=== PATIENT | female | born 1940 | race Caucasian/White ===

== ENCOUNTER 2018-01-31 06:57 | Outpatient (CLI) | payer MEDICARE, BC ==
[~2018-01-31] VITALS: Ht 160 cm; Wt 76.8 kg
--- NOTE | ~2018-01-31 | HEMODYNAMI ---
PATIENT:SHAUNA HAY V MEDICAL RECORD: [id number] : 40 LOCATION:D.CAT ADMISSION DATE: 01/31/18 Generatedon:01/31/20188:58 Patient name: SHAUNA HAY Patient #: [id number] SSN: D OB: 1940 Date of study: 01/31/2018 Page: Of Hemodynamic Procedure Report Patient Data Patient Demographics Procedure consent was obtained First Name: SHAUNA Gender: Female Last Name: BHARTI : 1940 [facility] Initial: V Age: 77 year(s) Patient #: [id number] Race: Unknown Additional ID: [id number] Contact details Address: [place] [address] State: [place] City: [facility] Zip code: [address] Admission Admission Data Admission Date: 01/31/2018 Admission Time: 6:57 Admit Source: Other Procedure Procedure Types Cath Procedure Diagnostic Procedure LHC LHC w/Coronaries Procedure Description Procedure Date Procedure Date: 01/31/2018 Procedure Start Time: 8:43 Procedure End Time: 8:57 Procedure Staff Name Function Lang Javier MD Performing Physician Sharan Gupta RT Monitor Daniel Lizama RT Scrub Romel Sparks RN Nurse Jordi Mckeon RT Information Clerk [employer] Procedure Data Cath Procedure Fluoroscopy Diagnostic fluoroscopy Total fluoroscopy Time: 3.5 time: 3.5 min min Diagnostic fluoroscopy Total fluoroscopy dose: 64 dose: 64 mGy mGy Contrast Material Contrast Material Type Amount (ml) Isovue 300 33 Entry Location Entry Primary Successful Side Size Upsize Upsize Entry Closure Giang ccessful Closure Location (Fr) 1 (Fr) 2 (Fr) Remarks Device Remarks Radial Right 6 Fr Mechanical artery Short Compression Estimated blood loss: 10 ml Diagnostic catheters Device Type Used For End Catheter Placement DIAGNOSTIC [place] 110cm 5 Procedure Fr catheter ([id number]) Procedure Complications No complications Procedure Medications Medication Administration Route Dosage Oxygen etCO2 Nasal cannula 2 l/min Heparin Flush Bag added to field 2 bags (1000units/500ml NS) 0.9% NaCl I.V. 100 ml/hr Radial Cocktail added to field 1 syringe (Verapomil 2mg/Nitro 400mcg/Heparin 1500units) Fentanyl I.V. 50 mcg Versed I.V. 1 mg Fentanyl I.V. 25 mcg Versed I.V. 0.5 mg Radial Cocktail I.A. 1 syringe (Verapomil 2mg/Nitro 400mcg/Heparin 1500units) Hemodynamics Rest Heart Rate: 57 (bpm) Pressure Samples Time Site Value (mmHg) Purpose Heart Use Rate(bpm) 8:52 LV 125/3,17 EDP 63 8:53 AO 200/61(67) Snapshot 64 8:53 AO 113/67(87) Snapshot 65 Gradients Valve Time Site Site Mean SEP/DFP Peak To Heart Use 1 2 (mmHg) (sec/min) Peak Rate (mmHg) (bpm) Aortic 8:53 LV AO 62 Snapshots Pre Cath Intra NCS Post Cath Vital Signs Time Heart Resp SPO2 etCO2 NIBP (mmHg) Rhythm Pain Sedation Rate (ipm) (%) (mmHg) Status Level (bpm) 8:27:09 61 17 99 0 158/78(122) NSR 0 (11) 10(A) , No pain 8:32:33 55 16 100 28.5 152/78(106) NSR 0 (11) 10(A) , No pain 8:36:53 56 16 98 30.1 129/70(102) NSR 0 (11) 10(A) , No pain 8:42:10 54 16 96 27.8 133/73(100) NSR 0 (11) 9(A) , No pain 8:46:31 55 16 97 27 127/68(105) NSR 0 (11) 9(A) , No pain 8:50:49 67 17 94 27 107/59(84) NSR 0 (11) 9(A) , No pain 8:55:03 64 17 97 30 122/67(84) NSR 0 (11) 9(A) , No pain Medications Time Medication Route Dose Verified Delivered Reason Notes Effectiveness by by 8:29:17 Oxygen etCO2 2 l/min Lang Urena Per Nasal Concepcion Sparks RN physician cannula 8:29:26 Heparin Flush added 2 bags Lang Urena used for Bag to Concepcion Sparks carrier washer (1000units/500ml field NS) 8:29:35 0.9% NaCl I.V. 100 Lang Romel Per ml/hr Concepcion Sparks RN physician MD 8:29:43 Radial Cocktail added 1 Lang Romel used for (Verapomil to syringe Concepcion Sparks RN procedure 2mg/Nitro field LEO 400mcg/Heparin 1500units) 8:39:16 Fentanyl I.V. 50 mcg Lang Romel for sedation Concepcion Sparks RN, MD 8:39:22 Versed I.V. 1 mg Lang Romel for sedation Concepcion Sparks RN, MD 8:41:04 Fentanyl I.V. 25 mcg Lang Romel for sedation Concepcion Sparks RN, MD 8:41:09 Versed I.V. 0.5 mg Lang Romel for sedation Concepcion Sparks RN, MD 8:46:14 Radial Cocktail I.A. 1 Lagn Lang for (Verapomil syringe Concepcion Javier MD vasodilation 2mg/Nitro MD 400mcg/Heparin 1500units) Procedure Log Time Note 8:00:43 Jordi Mckeon RT(R) sent for patient. Start room use. 8:17:42 Informed consent obtained and on chart 8:17:45 Admit Source: Other 8:18:10 Diagnostic Cath status Elective 8:19:00 Time tracking: Regular hours (M-F 7:00 - 5:00) 8:19:04 Plan of Care:Hemodynamics will remain stable., Cardiac rhythm will remain stable., Comfort level will be maintained., Respiratory function will remain adequate., Patient/ family verbilizes understanding of procedure., Procedure tolerated without complication., Recovers from procedure without complications.. 8:19:14 Patient received from Pre/Post Procedure Room to CCL 3 Alert and oriented. Tansferred to table in Supine position. 8:19:15 Warm blankets applied, and sintia hugger turned on for patient comfort. 8:19:16 Correct patient and procedure confirmed by team. 8:19:18 ECG and BP/O2 sat monitors applied to patient. 8:25:49 Vital chart was started 8:29:17 Oxygen 2 l/min etCO2 Nasal cannula was administered by Romel Sparks RN; Per physician; 8:29:26 Heparin Flush Bag (1000units/500ml NS) 2 bags added to field was administered by Romel Sparks RN; used for procedure; 8:29:35 0.9% NaCl 100 ml/hr I.V. was administered by Romel Sparks RN; Per physician; 8:29:43 Radial Cocktail (Verapomil 2mg/Nitro 400mcg/Heparin 1500units) 1 syringe added to field was administered by Romel Sparks RN; used for procedure; 8:33:40 Baseline sample Acquired. 8:33:52 Rhythm: sinus bradycardia 8:33:53 Full Disclosure recording started 8:34:04 H&P Date Dictated: 01/30/2018 Within 30 days and on chart., H&P Addendum completed by physician on day of procedure. (MUST COMPLETE FOR ALL OUTPATIENTS). 8:34:04 Pre-procedure instructions explained to patient. 8:34:05 Pre-op teaching completed and patient verbalized understanding. 8:34:07 Family in waiting room. 8:34:08 Patient NPO since Midnight. 8:34:11 Is the patient allergic to Iodine/contrast media? No. 8:34:13 Is patient on blood thinner?Yes 8:34:15 ACC The patient was administered the following blood thiners within the last 24 hours: ACCPlavix 8:34:17 Patient diabetic? No. 8:34:20 Previous problem with sedation/anesthesia? No ? 8:34:21 Snore? Yes 8:34:23 Sleep apnea? No 8:34:24 Deviated septum? No 8:34:24 Opens mouth fully? Yes 8:34:25 Sticks out tongue? Yes 8:34:27 Airway obstruction? No ? 8:34:29 Dentures? No ? 8:34:32 Pre procedure: right dorsailis pedis pulse 1+ Palpable, but thready & weak; easily obliterated 8:34:34 Modified Jonah's test Ulnar < 7 seconds 8:34:36 Patient pain scale 0/10 ?. 8:34:41 IV patent on arrival in left hand with 0.9% NaCl at O. 8:34:43 Lab results completed and on chart. 8:34:46 Right Radial & Right Groin area was prepped with chlora-prep and draped in sterile fashion 8:34:48 Alarms reviewed by RAnthony N. 8:34:48 Sharps counted by scrub and verified by R.N. 8:34:50 --------ALL STOP TIME OUT------ 8:34:50 Final Timeout: patient, procedure, and site verified with staff and physician. All members of the team are in agreement. 8:34:52 Right Radial & Right Groin site verified by team. 8:34:55 Physical assessment completed. ASA score P 2 - A patient with mild systemic disease as per Lang Javier MD. 8:34:58 Sedation plan: IV Moderate Sedation Medication:Versed, Fentanyl 8:39:16 Fentanyl 50 mcg I.V. was administered by Romel Sparks RN; for sedation; 8:39:22 Versed 1 mg I.V. was administered by Romel Sparks RN; for sedation; 8:40:01 Zero performed for pressure channel P1 8:40:05 Zero performed for pressure channel P1 8:40:17 Zero performed for pressure channel P1 8:40:19 Zero performed for pressure channel P1 8:41:04 Fentanyl 25 mcg I.V. was administered by Romel Sparks RN; for sedation; 8:41:09 Versed 0.5 mg I.V. was administered by Romel Sparks RN; for sedation; 8:42:56 Procedure started. 8:43:01 Local anesthetic to right radial artery with Lidocaine 2% by Lang Javier MD.INITIAL ACCESS ONLY 8:43:03 Use device set Radial Dx or PCI 8:43:05 Tegaderm 4 x 4 (1626W) opened to sterile field. 8:43:06 ACIST Manifold (53541) opened to sterile field. 8:43:07 ACIST Hand Control (22601) opened to sterile field. 8:43:08 ACIST Syringe (71213) opened to sterile field. 8:43:09 Medline Cath Pack ([id number]) opened to sterile field. 8:43:09 Bag Decanter (2002) opened to sterile field. 8:43:10 DIAGNOSTIC WIRE .035 260cm J wire (395861) opened to sterile field. 8:43:10 MBrace Wrist Support ([id number]) opened to sterile field. 8:43:12 SHEATH 6Fr Prelude Radial ([id number]) opened to sterile field. 8:45:36 A 6 Fr Short sheath was inserted into the Right Radial artery 8:46:14 Radial Cocktail (Verapomil 2mg/Nitro 400mcg/Heparin 1500units) 1 syringe I.A. was administered by Lang Javier MD; for vasodilation; 8:46:49 A DIAGNOSTIC [place] 110cm 5 Fr catheter (876863) was advanced over the wire and used for Procedure. 8:49:12 GLIDE WIRE ANGLE 260cm (DW1302) opened to sterile field. 8:49:29 Glidewire used to advance catheter. 8:53:30 LV angiography performed. 8:53:31 LV gram done using RUDD 8:53:38 EF : 60 % 8:53:41 LV hemodynamics recorded. 8:53:45 Injector settings: Ml/sec: 12, Volume: 8, 8:53:56 RCA angiography performed. 8:54:05 LCA angiography performed. 8:54:25 Catheter removed. 8:54:27 TR BAND Standard ([id number]) opened to sterile field. 8:54:39 Sheath removed intact; hemostasis achieved with Mechanical Compression to the Right Radial artery. 8:54:50 Procedure ended.(Physican Out) 8:55:20 Fluoroscopy time 03.50 minutes. 8:55:25 Fluoroscopy dose: 64 mGy 8:55:25 Flurop Dose total: 64 8:55:29 Contrast amount:Isovue 300 33ml. 8:55:30 Sharps counted by scrub and verified by R.N. 8:55:36 TR band inflated with 10cc of air. 8:55:50 Insertion/operative site no bleeding no hematoma. 8:55:51 Post Procedure Pulses reassessed and unchanged 8:55:54 Post-procedure physical assessment completed. ASA score P 2 - A patient with mild systemic disease as per Lang Javier MD. 8:55:56 Post procedure rhythm: unchanged. 8:55:58 Estimated blood loss: 10 ml 8:55:59 Post procedure instruction explained to patient.Patient verbalizes understanding. 8:56:00 Patient needs reinforcement of post procedure teaching. 8:56:06 Procedure and supply charges have been captured, reviewed, submitted and are correct. 8:56:09 Procedure Complication : No complications 8:56:36 Vital chart was stopped 8:56:37 See physician's report for complete and final results. 8:57:19 Report given to Pre/Post Procedure Room. 8:57:23 Patient transfered to Pre/Post Procedure Room with Stretcher. 8:57:25 Procedure ended. 8:57:25 Full Disclosure recording stopped 8:57:32 End room use (Document Last) Device Usage Item Name Manufacture Quantity Catalog Number Hospital Part Current M inimal Lot# / Charge Number Stock Stock Serial# Code Tegaderm 4 x 4 3M 1 1626W [id number] [id number] [id number] 5 (1626W) ACIST Manifold Acist 1 61847 223204 520410 487736 5 (75771) [employer] ACIST Hand Acist 1 42214 145075 333501 168474 5 Control (60634) [employer] ACIST Syringe Acist 1 97352 024550 626924 481498 2 0 (99207) [employer] Systems Inc Medline Cath Cardinal 1 [id number] 263851 78039 163391 5 Pack Health ([id number]) Bag Decanter Microtek 1 2001S 207483 92706 582674 5 () Medical Inc. DIAGNOSTIC WIRE St Veto 1 184274 128724 280100 344047 3 0 .035 260cm J wire (898365) MBrace Wrist Advanced 1 140-0250-00 503584 02243 547852 5 Support Vascular ([id number]) Dynamics SHEATH 6Fr Merit 1 [id number] 006561 436178 831741 5 Prelude Radial Medical ([id number]) DIAGNOSTIC Terumo 1 40-9188 166374 763684 293720 5 [place] 110cm 5 Fr catheter (011147) GLIDE WIRE Terumo 1 [id number] 305115 253581 868952 5 ANGLE 260cm (WR3770) TR BAND Terumo 1 [id number] 166493 558089 264503 4 0 Standard ([id number]) Signature Audit [place] Stage Time Signature Unsigned Intra-Procedure 01/31/2018 Sharan Gupta 8:57:51 AM RT(R) Signatures Monitor : Sharan Gupta RT Signature : Date : Time : [facility] [address] [place] [address]
--- NOTE | ~2018-01-31 | OP ---
PATIENT NAME: SHAUNA HAY V MEDICAL RECORD: [id number] :40 LOCATION:D.CAT ADMISSION DATE: SURGEON: LANG HORTON MD DATE OF OPERATION: 01/31/2018 PROCEDURE: Left heart cath, LV gram, coronary angiogram. HEAD OF MATHEMATICS: Lang Horton MD PROCEDURE IN DETAIL: The patient was brought to cardiac catheterization lab in stable condition. Right wrist was sterilely prepped and draped. The patient had a 6-Bulgarian sheath placed in the right radial artery using modified Seldinger technique. The patient had diagnostic catheter utilized to intubate the left coronary artery, the right coronary artery, and the left ventricular cavity respectively and we were able to complete left heart catheterization. The procedure was terminated successfully. FINDINGS: 1. Left main is normal. 2. The LAD has mild mid plaquing. 3. The circumflex is nondominant and normal. 4. The RCA is a dominant vessel and normal. HEMODYNAMICS: Left ventricular ejection fraction 65%. End-diastolic pressure is normal. No significant mitral regurgitation. No gradient across the aortic valve. IMPRESSION: Trivial to mild coronary artery disease with preserved left ventricular systolic function. RECOMMENDATIONS: Look for other sources of the patient's chest pain syndrome. TRANSINT:[id number] Voice Confirmation ID: [id number] DOCUMENT ID: [id number] LANG HORTON MD at 0748 CC: [id number] DICTATION DATE: 01/31/18 0857 [employer] DEPARTMENT SUPERVISOR: 01/31/1857 DEP CLI 01/31/[address] [address]
[2018-01-31] MEDS ORDERED: SYNTHROID88 MCG PO (07:08)
[2018-01-31] MEDS ORDERED: VITAMIN D31000 UNI2 PO (07:10)
[2018-01-31] MEDS ORDERED: BAYER CHEWABLE81 MG PO (07:10)
[2018-01-31] MEDS ORDERED: PRESERVISION AR1 CAP PO (07:11)
[2018-01-31 07:24] VITALS: BP 166/77; Ht 160 cm; Wt 76.8 kg
[2018-01-31 07:39] LABS: BASOPHILS 0.4 % (0-2); EOSINOPHILS 3.5 % (0-7); HEMATOCRIT 40.6 % (36.0-48.0); IMMATURE GRANULOCYTES 0.4 % (0-5); LYMPHOCYTES 26.8 % (15-50); MCH 26.9 pg (26.0-34.0); MCV 83.9 fL (80.0-100.0); MEAN PLATELET VOLUME 11.8 fL (7.4-10.4); MONOCYTES 9.7 % (2-11); NEUTROPHILS 59.2 % (40-80); PLATELET COUNT 238 10x3/uL (130-400); RBC 4.84 10x6/uL (4.00-5.40); RDW 15.1 % (11.5-14.5); WBC 6.8 10x3/uL (4.8-10.8)
[2018-01-31 07:46] LABS: ANION GAP 11.3 mmol/L (8-16); CALCIUM 8.7 mg/dL (8.5-10.1); CARBON DIOXIDE 26.7 mmol/L (21.0-32.0); CREATININE - SERUM 1.2 mg/dL (0.6-1.3)
== END 2018-01-31 11:40 | disposition home or self-care (01) ==
LOC: D.CATH 06:57
PROVIDERS: Internal Medicine Cardiovascular Disease
DX: R07.89 Other chest pain (principal); Z01.812 Encounter for preprocedural laboratory examination